=== PATIENT | female | born 1940 | race Caucasian/White ===

== ENCOUNTER → 2021-06-26 | Outpatient (CLI) | payer MEDICARE ==
[~2021-06-26] MED LIST: BAMLANIVIMAB (EUA) 700 MG, ETESEVIMAB (EUA) 1,400 MG in SODIUM CHLORIDE 0.9% 50 ML IVPB NR; SODIUM CHLORIDE 0.9% 50 ML IVPB NR; SODIUM CHLORIDE 0.9% 500 ML 500 ML in EMPTY BAG 1 BAG IV PRN
[2021-06-26 13:56] VITALS: RESP 16; TEMP 98.5
[2021-06-26 14:58] VITALS: BP 130/82; PULSE 77
== END ==
LOC: PROCWHC3 13:16
PROVIDERS: ATTEND Physician Assistant
DX: U07.1 COVID-19 (principal); E66.9 Obesity, unspecified; Z68.31 Body mass index [BMI] 31.0-31.9, adult
CPT/HCPCS: 96360; J3490; M0245